=== PATIENT | female | born 1930 | race Caucasian/White ===

== ENCOUNTER 2017-03-27 09:37 | Inpatient (IN) | payer MEDICARE ==
[~2017-03-27] VITALS: Ht 154.9 cm; Wt 61.7 kg
[2017-03-27] MEDS ORDERED: PRESCAP PO (09:55)
[2017-03-27] MEDS ORDERED: HYDR12.55 PO (09:55)
[2017-03-27] MEDS ORDERED: LATA5OPD OD (09:55)
[2017-03-27] MEDS ORDERED: XARE20TA PO (09:55)
[2017-03-27] MEDS ORDERED: TRAM1CAP15 PO (09:55)
[2017-03-27] MEDS ORDERED: SIMV40TA2 PO (09:55)
[2017-03-27] MEDS ORDERED: BETAXOLOL OU (09:55)
[2017-03-27] MEDS ORDERED: LEG1TAB PO (09:55)
[2017-03-27] MEDS ORDERED: AMLO25TA PO (09:55)
[2017-03-27] MEDS ORDERED: ALPH0.156 OD (09:55)
[2017-03-27 10:28] LABS: BASO # 0.1 K/mm3 (0.0-0.2); EOS # 0.1 K/mm3 (0.0-0.50); EOS % 1.7 % (0.0-3.0); LARGE UNSTAINED CELL # 0.1 K/mm3 (0.0-0.4); LARGE UNSTAINED CELL % 1.2 % (0.0-4.0); LYMPH # 1.1 K/mm3 (1.5-4.5); LYMPH % 17.4 % (24.0-44.0); MEAN CORPUSCULAR HEMOGLOBIN 32.5 pg (27.0-33.0); MEAN CORPUSCULAR HGB CONC 33.7 g/dl (32.0-36.5); MEAN CORPUSCULAR VOLUME 96.3 fl (80.0-96.0); MONO # 0.2 K/mm3 (0.0-0.8); MONO % 3.6 % (0.0-5.0); NEUTROPHILS # 4.3 K/mm3 (1.8-7.7); NEUTROPHILS % 75.2 % (36.0-66.0); PLATELET COUNT, AUTOMATED 240 k/mm3 (150-450); RED CELL DISTRIBUTION WIDTH 12.9 % (11.5-14.5); WHITE BLOOD COUNT 5.8 K/mm3 (4.0-10.0)
[2017-03-27 10:33] LABS: INR 1.17
--- NOTE | 2017-03-27 10:42 | REP ---
Chest one-view HISTORY: Infarction Comparison: 05/06/2007 The lungs are clear. The heart is normal in size. The pulmonary vasculature is normal in appearance. Impression: No acute disease. Signed by Ryan Arreguin MD 03/27/2017 10:34 A
[2017-03-27] MEDS ORDERED: hydroCHLOROthiazide 12.5 MG CAPSULE PO ONE (10:45)
--- NOTE | 2017-03-27 10:53 | REP ---
CT HEAD WITHOUT CONTRAST: HISTORY: Infarction. Areas of decreased attenuation are present in the periventricular and subcortical white matter. This represents small vessel ischemic disease. There is no intraparenchymal hemorrhage, acute infarct, mass or midline shift. The ventricular system and cortical sulci as well as subarachnoid space in the posterior fossa are dilated consistent with mild volume loss. There is no extracerebral collection. Mucosal thickening is present in the left ethmoid sinus. The patient is status post bilateral retinal banding. IMPRESSION: 1. Small vessel ischemic disease. 2. Mild volume loss. Signed by Ryan Arreguin MD 03/27/2017 10:54 A
[2017-03-27 11:03] LABS: ANION GAP 6 MEQ/L (8-16); BLOOD UREA NITROGEN 9 MG/DL (7-18); CALCIUM LEVEL 9.6 MG/DL (8.8-10.2); CARBON DIOXIDE LEVEL 28 MEQ/L (21-32); CHLORIDE LEVEL 106 MEQ/L (98-107); CREATININE FOR GFR 0.57 MG/DL (0.55-1.02); GLOMERULAR FILTRATION RATE > 60.0 (>32); GLUCOSE, FASTING 98 MG/DL (83-110); POTASSIUM SERUM 3.6 MEQ/L (3.5-5.1); SODIUM LEVEL 140 MEQ/L (136-145)
--- NOTE | 2017-03-27 13:24 | REP ---
MRI BRAIN WITHOUT CONTRAST: HISTORY: Blurred vision. COMPARISON: CT 03/27/2017 Areas of increased signal intensity on T2-weighted images are present in the periventricular and subcortical white matter and fabienne. This represents small vessel ischemic disease. There is no intraparenchymal hemorrhage, infarct, mass or midline shift. The ventricular system and cortical sulci as well as subarachnoid space in the posterior fossa are dilated consistent with mild volume loss. There is no extracerebral collection. Minimal mucosal thickening is present in the right ethmoid sinus. IMPRESSION: 1. Small vessel ischemic disease. 2. Mild volume loss. Signed by Ryan Arreguin MD 03/27/2017 01:42 P
[2017-03-27] MEDS ORDERED: TRAM50TA2 PO (13:34)
[2017-03-27] MEDS ORDERED: AMLO10TA2 PO (13:34)
[2017-03-27] MEDS ORDERED: SIMV10TA2 PO (13:34)
[2017-03-27] MEDS ORDERED: BETA0.5S9 OU (13:34)
[2017-03-27] MEDS ORDERED: traMADol 50 MG TAB PO PRN (14:15)
[2017-03-27] MEDS ORDERED: ONDANSETRON 4MG/2ML VIAL (J2405) IV PRN (14:15)
--- NOTE | 2017-03-27 15:01 | HPE ---
DATE OF ADMISSION: 03/27/2017 PRIMARY CARE PROVIDER: Yael Padgett but follows with Adria Matt in [place]. THREAT MONITORING ANALYST: Dr. Jeff in [place]. CHIEF COMPLAINT: The patient woke up this morning and was in her usual state of health, went to the bathroom and used the toilet. When she arose from the toilet, she washed her hands, was walking out of the bathroom and she began to feel weak and her vision began to fade. She nearly collapsed. She called her , who was able to help support her. She did not fall down and did maintain on her feet, taking four steps until she was able to lie down on the bed and she began to feel better. At the present time, she continues to feel a little weak, but otherwise is getting back to normal. She never lost consciousness. There was no bladder or bowel incontinence. Shortly thereafter, she did have some dry heaves with nausea, which has not persisted. Visual acuity test was done in the emergency room and was found that the left was 20/50 and right 20/60. Stroke scale was conducted in the emergency room by Dr. Hatch, which she tells me was zero. The patient is concerned as she has not had any episodes like this in the past. She denies fever, chills, diarrhea, sick contacts or recent travel. PAST MEDICAL HISTORY: 1. Paroxysmal atrial fibrillation on Xarelto. 2. Hypertension. 3. Glaucoma, status post right eye shunt. 4. Macular degeneration. 5. Dyslipidemia. 6. Osteoporosis. ALLERGY: ACETAZOLAMIDE, CANDESARTAN, CODEINE, PENICILLIN. PAST SURGICAL HISTORY: 1. "Tubes tied." 2. Hysterectomy. 3. Bladder suspension surgery. 4. Right eye shunt for glaucoma. SOCIAL HISTORY: She drinks one glass of wine with dinner twice a week. She lives with her and nobody else. She denies tobacco or illicit drug use. She has a cat and dog at home. FAMILY HISTORY: Noncontributory. REVIEW OF SYSTEMS: Negative other than history of present illness. HOME MEDICATIONS: - PreserVision AREDs one capsule twice a day - Norvasc 10 mg at night - Betaxolol 0.5% solution both eyes twice a day - Alphagan 0.15% drop both eyes at night - hydrochlorothiazide 12.5 mg daily - Latanoprost OD at night - Xarelto 20 mg at night - simvastatin 10 mg Wednesday through Wednesday and held on Wednesday and Wednesday - tramadol 50 mg every four hours as needed for pain PHYSICAL EXAMINATION: The patient was hypertensive on arrival with a systolic reportedly greater than 200. At the present time, she was 144/69. Temperature 98.1, pulse 62, respiratory rate is 18, oxygen saturation 95% on room air. GENERAL: She is a very pleasant, elderly, female sitting on the stretcher. She does not appear to be in any acute distress. She is accompanied by her . She speaks in complete sentences. HEENT: Her visual field testing is intact on confrontation. Cranial nerves II through XII grossly intact. She has moist mucous membranes. Face is symmetric. CARDIOVASCULAR EXAM: S1, S2. Irregularly irregular. Mildly bradycardic. No additional heart sounds are appreciated. No elevation of central venous pressure. RESPIRATORY EXAM: Clear. ABDOMINAL EXAM: Mild obesity. Bowel sounds present. Abdomen is soft. EXTREMITIES: No clubbing, cyanosis, or edema. LABORATORY DATA: WBC 5.8, hemoglobin 14, hematocrit 41.6, platelet count 240. Chemistry panel: Sodium 140, potassium 3.6, chloride 106, bicarbonate 28, BUN 9, creatinine 0.5. One set of cardiac enzymes is negative. INR is 1.1. No microbiology. IMAGING: The patient did have a MRI of the brain, which revealed small vessel ischemic disease and mild volume loss. She also did have a chest x-ray, which revealed no acute disease. She also had a CT scan of her head, which revealed small vessel ischemic disease and mild volume loss. ASSESSMENT AND PLAN: This is an 87-year-old female with near syncope. 1. Near syncope, unclear etiology. It may have been a vasovagal response. She did have an episode of nausea and vomiting with dry heaves following it. There does not appear to be any palpitations, but she has a history of atrial fibrillation. She will be admitted to the progressive care unit (PCU). I will check an echocardiogram and cardiac enzymes, rule out any arrhythmia or tachybrady syndrome. MRI has already been completed. She did not have a CVA. She has no residual symptoms. We will also check carotid duplex. 2. Paroxysmal atrial fibrillation. Continue with Xarelto. She is not on any rate controlling agent. She does not appear to need it, as she is mildly bradycardic at her baseline. The patient is anticoagulated with Xarelto. 3. Hypertension. She is hypertensive at the time of her arrival in the emergency room. She did not take any of her home medications. She was given 12.5 mg hydrochlorothiazide in the emergency room. I will restart her on amlodipine 10 mg in addition to this. 4. Dyslipidemia. Continue with simvastatin Wednesday through Wednesday. 5. Glaucoma. Continue her home eye drops. Begin Latanoprost and Betaxolol. 6. Chronic osteoarthritic pain. Continue with tramadol as needed. 7. Deep vein thrombosis (DVT) prophylaxis. The patient is on Xarelto. DISPOSITION: The patient is admitted to the progressive care unit (PCU) to Dr. Cardona's service, who will continue to follow the patient at 7:00 a.m. Physical therapy (PT) evaluation has been placed for home safety.
[2017-03-27 15:35] VITALS: BP 132/80
--- NOTE | 2017-03-27 16:24 | ECGEPIP ---
Stationary ECG Study [facility] - ED Test Date: 2017-03-27 Pat Name: GLORIA BARRETO Department: Room: - Gender: F Hris Specialist: pan : 1930 Requested By: Mariah Pineda Order Number: [id number] Reading MD: Mariah Pineda Measurements Intervals [place] Rate: 66 P: -1 KS: 174 QRS: -26 QRSD: 165 T: 113 QT: 529 QTc: 557 Interpretive Statements SINUS RHYTHM LEFT BUNDLE BRANCH BLOCK LAD CW 05/17/16 - RATE DECREASED RHYTHM CHANGE Electronically Signed On 03-27-2017 16:24:29 EDT by Mariah Pineda
--- NOTE | 2017-03-27 17:00 | REPUSA ---
CLINICAL HISTORY: r/o stenosis TECHNIQUE: Realtime sonographic images were obtained in multiple projections. COMMENTS: Realtime examination demonstrates mild echogenic plaque at the bifurcation on the right and proximal right internal carotid artery. Mild echogenic plaque is also documented at the bifurcation on the left and proximal left internal ca rotid artery. Hemodynamic measurement shows no evidence of hemodynamically significant stenoses. The right ICA systolic/diastolic velocities are 57/10 cm/sec. The left ICA systolic/diastolic velocit ies are 61/15 cm/sec. The right IC/CC ratio is 0.88, the left IC/CC ratio is 0.74. External carotid arteries are unremarkable. Vertebral arteries are visualized and have normal antegra de flow. IMPRESSION: 1. Mild echogenic plaque formation at both carotid bifurcations with extension into the ICAs with est imated 0-39% stenosis. 2. No evidence of hemodynamically significant stenosis. Thank you for your kind referral of this patient.
--- NOTE | 2017-03-27 19:05 | ECGEPIP ---
Stationary ECG Study [facility] Test Date: 2017-03-27 Pat Name: Lilliana BARRETO Department: pcu Room: [place] [address] Gender: F Development Geologist: CINDI : 1930 Requested By: NGUYỄN RAHMAN Order Number: [id number] Reading MD: Bunny Phillip Measurements Intervals [place] Rate: 64 P: 8 MT: 179 QRS: -32 QRSD: 162 T: 138 QT: 498 QTc: 516 Interpretive Statements SINUS RHYTHM WITH SINUS ARRHYTHMIA MARKED LEFT AXIS DEVIATION LEFT BUNDLE BRANCH BLOCK No change from earlier this same day Electronically Signed On 03-27-2017 19:04:38 EDT by Bunny Phillip
[2017-03-27 20:00] VITALS: BP 144/72
[2017-03-27] MEDS: LATANOPROST 0.005% OPHTH SOLN 2.5 ML OD SCH (20:06)
[2017-03-27] MEDS: BETAXOLOL 0.5% OU SCH (20:06)
[2017-03-27] MEDS: amLODIPine 10 MG TAB PO SCH (20:06)
[2017-03-27] MEDS: BRIMONIDINE 0.15% OPHTH SOLN 5 ML OD SCH (20:06)
[2017-03-27] MEDS: RIVAROXABAN 20 MG TAB (XARELTO) PO SCH (20:07)
[2017-03-28] VITALS (9 sets, daily range): BP systolic 111–160; BP diastolic 55–92
[2017-03-28] MEDS ORDERED: SLF 3 ML SYR IV PRN (01:45)
[2017-03-28 01:46] LABS: MAGNESIUM LEVEL 2.1 MG/DL (1.8-2.4)
[2017-03-28] MEDS: SLF 3 ML SYR IV SCH ×3 (04:23→20:13)
[2017-03-28 08:38] LABS: MEAN CORPUSCULAR HEMOGLOBIN 32.7 pg (27.0-33.0); MEAN CORPUSCULAR HGB CONC 33.6 g/dl (32.0-36.5); MEAN CORPUSCULAR VOLUME 97.3 fl (80.0-96.0); RED CELL DISTRIBUTION WIDTH 12.6 % (11.5-14.5); WHITE BLOOD COUNT 4.8 K/mm3 (4.0-10.0)
[2017-03-28 08:42] LABS: ANION GAP 8 MEQ/L (8-16); BLOOD UREA NITROGEN 7 MG/DL (7-18); CALCIUM LEVEL 9.1 MG/DL (8.8-10.2); CARBON DIOXIDE LEVEL 26 MEQ/L (21-32); CHLORIDE LEVEL 105 MEQ/L (98-107); CREATININE FOR GFR 0.61 MG/DL (0.55-1.02); GLOMERULAR FILTRATION RATE > 60.0 (>32); GLUCOSE, FASTING 95 MG/DL (83-110); SODIUM LEVEL 139 MEQ/L (136-145)
[2017-03-28] MEDS ORDERED: POTASSIUM CHLORIDE 10 MEQ SR TABLET PO ONE (09:30)
[2017-03-28] MEDS: BETAXOLOL 0.5% OU SCH ×2 (09:31→20:07)
[2017-03-28] MEDS: hydroCHLOROthiazide 12.5 MG CAPSULE PO SCH (09:31)
--- NOTE | 2017-03-28 11:56 | IPN ---
DATE: 03/28/2017 She is currently inpatient. She is seen and examined at the bedside. Chart has been reviewed. She denies any lightheadedness, near syncope, dizziness, chest pain, pressure, or tightness or shortness of breath this morning. Afebrile. No chills or cough. Telemetry is unremarkable. Remains in atrial fibrillation with a ventricular rate of 63 to 68. VITAL SIGNS: Temperature 98.1, pulse 64, respiratory rate 19, blood pressure 146/92, 93% on room air. GENERAL: Awake, alert, oriented times three. Answering questions appropriately. No jugular venous distention (JVD). No thyromegaly. No cervical lymphadenopathy. LUNGS: Clear to auscultation. No wheezing, rales or rhonchi. HEART: S1, S2. Irregularly irregular with no jugular venous distention (JVD). ABDOMEN: Obese, soft, nontender, nondistended. Positive bowel sounds. EXTREMITIES: No cyanosis, clubbing, or pitting edema. Laboratory data, microbiology and imaging studies have been reviewed and notable for a potassium of 3.0. MRI of the brain is negative. Vascular ultrasound of the neck with no critically hemodynamic stenosis. Chest x-ray shows no acute disease. ASSESSMENT AND PLAN: This is an 87-year-old female with a history of paroxysmal atrial fibrillation on Xarelto, hypertension, glaucoma, macular degeneration, dyslipidemia, osteoporosis, right eye shunt for glaucoma, presents to the emergency room with complaints of near syncope while using the toilet, most likely vasovagal; however, in the emergency room she was found to be slightly bradycardic and was admitted for observation. Awaiting echocardiogram. 1. Near syncope, most likely vasovagal. Did have an episode of nausea, vomiting, and dry heaving. History of atrial fibrillation. On telemetry, the patient was found to be bradycardic. Ultrasound of the carotids are unremarkable. MRI of the brain has no CVA. Awaiting echo prior to discharge. 2. Paroxysmal atrial fibrillation. On Xarelto. At times becomes bradycardic. Continue on telemetry. Discharge home in the morning if asymptomatic from the bradycardia. 3. Hypertension, stable. Continue with Norvasc. 4. Dyslipidemia. Continue with simvastatin in the morning. 5. Glaucoma. Continue home eye drops. DISPOSITION: May discharge home in the morning if echo is performed.
[2017-03-28] MEDS: BRIMONIDINE 0.15% OPHTH SOLN 5 ML OD SCH (20:06)
[2017-03-28] MEDS: LATANOPROST 0.005% OPHTH SOLN 2.5 ML OD SCH (20:06)
[2017-03-28] MEDS: RIVAROXABAN 20 MG TAB (XARELTO) PO SCH (20:07)
[2017-03-28] MEDS: amLODIPine 10 MG TAB PO SCH (20:08)
[2017-03-29 04:00] VITALS: BP 135/71
[2017-03-29] MEDS: SLF 3 ML SYR IV SCH (04:54)
[2017-03-29 05:57] LABS: MEAN CORPUSCULAR HEMOGLOBIN 32.4 pg (27.0-33.0); MEAN CORPUSCULAR HGB CONC 33.2 g/dl (32.0-36.5); MEAN CORPUSCULAR VOLUME 97.5 fl (80.0-96.0); RED CELL DISTRIBUTION WIDTH 12.7 % (11.5-14.5); WHITE BLOOD COUNT 5.7 K/mm3 (4.0-10.0)
--- NOTE | 2017-03-29 06:01 | ECHO ---
DATE OF PROCEDURE: 03/28/2017 AGE: 87 GENDER: Female REFERRING PHYSICIAN: Dr. Jerome Jeffries. HEIGHT: 60 inches. WEIGHT: 137 pounds. BODY SURFACE AREA: 1.59 sq m. INPATIENT: PCU Room 3222. INDICATION: Syncopal spell. Abnormal EKG. MEASUREMENTS: 2D MEASUREMENTS: RV - 3.2 cm LV- 4.4 cm Septum - 1.2 cm Posterior wall - 1.2 cm Aortic root - 3.3 cm LA - 3.9 cm LVEF - 45-50% DOPPLER MEASUREMENTS: AV - 1.6 m/s LVOT - 1.2 m/s MV-E: 59 A: 97 EA ratio 0.6 Early mitral deacceleration time 264 ms E-prime - 6.4 A-prime - 13 E/E prime ratio 10 PV - 1.3 m/s Pulmonary artery acceleration time 82 ms RVSP - 42 mmHg IVC - 2.0 cm COMMENTS: Normal sinus rhythm with left bundle branch block. Left atrial size upper limits of normal to mildly dilated. Normal left ventricular size. Right heart chambers were also normal in size. LV wall thickness was borderline increased symmetrically. On real-time imaging from the parasternal and apical projections, the septum moved paradoxically as we would expect with her left bundle branch block. The apex was also hypokinetic. Other wall motion was normal to hyperkinetic. Mild mitral annular thickening but normal leaflet thickness and excursion with no posterior systolic buckling. Three equal size aortic cusps with mildly thickened cusp edges but adequate cusp separation. Normal aortic root size. No apparent intracardiac mass or pericardial effusion. Color flow Doppler study taken from the parasternal and apical projection showed mild mitral and aortic with very mild tricuspid insufficiency. Guided continuous wave Doppler of her aortic valve showed a normal peak systolic velocity against LV outflow tract obstruction. Pulsed and continuous wave Doppler of her LV inflow tract taken from the apical four-chamber projection showed normal diastolic filling velocities against mitral stenosis. There was more prominent late diastolic/atrial dependent filling pattern. Diastolic dysfunction was confirmed by a prolonged early mitral deceleration time and tissue Doppler of her mitral annulus. Her current estimated mean left atrial pressure was upper limits of normal. Pulsed and continuous wave Doppler of her pulmonary trunk showed a normal peak systolic velocity against RV outflow tract obstruction. Her pulmonary artery acceleration time was significantly abbreviated consistent with an elevated pulmonary vascular resistance. Guided continuous wave Doppler of her tricuspid valve allowed our estimation of her right ventricular systolic pressure (moderately increased). Her inferior vena cava was upper limits of normal in size with reduced respiratory collapse in keeping with an elevation in central venous pressure. CONCLUSIONS: Borderline concentric left ventricle hypertrophy with septal wall motion abnormality related to left bundle branch block, at least mild impairment of global resting systolic function. Borderline left atrial enlargement with Doppler evidence of impairment of LV diastolic function yet current estimated mean left atrial pressure upper limits of normal. Normal right heart chamber sizes with Doppler evidence of moderate pulmonary hypertension. IVC size upper limits of normal with reduced respiratory collapse suggestive of a slightly elevated central venous pressure. Mild aortic valvular sclerosis without stenosis and only mild insufficiency. Mild mitral annular calcification with mild insufficiency. The above findings would not explain the patient's recent syncopal spell. MTDD
[2017-03-29 06:06] LABS: ANION GAP 9 MEQ/L (8-16); BLOOD UREA NITROGEN 13 MG/DL (7-18); CALCIUM LEVEL 9.4 MG/DL (8.8-10.2); CARBON DIOXIDE LEVEL 27 MEQ/L (21-32); CHLORIDE LEVEL 105 MEQ/L (98-107); CREATININE FOR GFR 0.61 MG/DL (0.55-1.02); GLOMERULAR FILTRATION RATE > 60.0 (>32); GLUCOSE, FASTING 89 MG/DL (83-110); POTASSIUM SERUM 3.8 MEQ/L (3.5-5.1); SODIUM LEVEL 141 MEQ/L (136-145)
[2017-03-29] MEDS: hydroCHLOROthiazide 12.5 MG CAPSULE PO SCH (07:33)
[2017-03-29] MEDS: BETAXOLOL 0.5% OU SCH (07:34)
[2017-03-29 08:00] VITALS: BP 132/65
[2017-03-29 10:21] LABS: FOLATE 11.2 NG/ML (>5.4)
[2017-03-29] MEDS ORDERED: SIMVASTATIN 10 MG TAB PO SCH (21:00)
--- NOTE | 2017-04-21 10:30 | DSES ---
DATE OF ADMISSION: 03/27/2017 DATE OF DISCHARGE: 03/29/2017 PRIMARY CARE PHYSICIAN: Sirena Alamo, but follows with Adria Matt in [place]. LOCATION WORKER: Dr. Jeff in [place]. PRIMARY DISCHARGE DIAGNOSES: 1. Near syncope with history of chronic atrial fibrillation on rate control medication due to episodes of bradycardia. 2. Paroxysmal atrial fibrillation. 3. Hypertension. 4. Dyslipidemia. 5. Glaucoma. 6. Borderline concentric left ventricle hypertrophy. Chronic left bundle branch block. Mild impairment of systolic function. Left ventricle diastolic dysfunction. Moderate pulmonary hypertension. Ejection fraction of 45-50%. DISCHARGE MEDICATIONS: - amlodipine 10 mg nightly - Leg Cramp Relief one tablet nightly - Xarelto 20 mg nightly - simvastatin 10 mg by mouth five times a week - tramadol 50 mg every 4 hours as needed for pain HOSPITAL COURSE: This is an 87-year-old female with history of paroxysmal atrial fibrillation on chronic Xarelto, hypertension, glaucoma, macular degeneration, dyslipidemia, osteoporosis, right eye shunt for glaucoma, presents to the emergency room (ER) with complaints of near syncope while using the toilet. Patient was found to be bradycardic in the ER, was admitted for observation. Patient has no issues on telemetry aside from episodes of bradycardia, which were asymptomatic. Lowest ventricle rate was 59. Echocardiogram showed ejection fraction (EF) of 45-50% with mild impairment of global systolic function, impaired left ventricular (LV) diastolic function, moderate pulmonary hypertension. Patient had no other issues, maintained her blood pressure, 111 to 130 systolic blood pressure, passed a home safety evaluation, was discharged home. LABS ON DISCHARGE: White count 5.7, hemoglobin 13, hematocrit 39, platelet count 250. Sodium 141, potassium 3.8, chloride 105, bicarbonate 27, BUN 13, creatinine 0.61, glucose of 89. IMAGING STUDIES: CT of the head: Small vessel ischemic disease, mild volume loss, on 03/27/2017. Chest x-ray: No acute disease. MRI of the brain on 03/27/2017: Small vessel ischemic disease, mild volume loss. Carotid duplex ultrasound shows no evidence of hemodynamically significant stenosis. TIME SPENT ON DISCHARGE: 30 minutes. [facility]
== END 2017-03-29 14:36 | disposition home health service (06) | DRG 312 ==
LOC: M ED 09:37 → M ED INP 14:05 → M PCU 15:45
PROVIDERS: ADMIT Internal Medicine; ATTEND General Practice
DX: R55 Syncope and collapse (principal); I10 Essential (primary) hypertension; E78.5 Hyperlipidemia, unspecified; I48.0 Paroxysmal atrial fibrillation; H40.9 Unspecified glaucoma; M81.0 Age-related osteoporosis without current pathological fracture; H35.30 Unspecified macular degeneration; Z88.0 Allergy status to penicillin; Z88.5 Allergy status to narcotic agent; Z88.8 Allergy status to other drugs, medicaments and biological substances; M19.90 Unspecified osteoarthritis, unspecified site

== ENCOUNTER 2017-04-08 07:52 | Inpatient (IN) | payer MEDICARE ==
[~2017-04-08] VITALS: Ht 152.4 cm; Wt 63.9 kg
[~2017-04-08 07:52] MED LIST: ALPH0.156 OD; AMLO10TA2 PO; AMLO25TA PO; BETA0.5S9 OU; BETAXOLOL OU; HYDR12.55 PO; LATA5OPD OD; LEG1TAB PO; PRESCAP PO; SIMV10TA2 PO; SIMV40TA2 PO; TRAM1CAP15 PO; TRAM50TA2 PO; XARE20TA PO
[2017-04-08 08:40] LABS: BASO % 0.7 % (0.0-1.0); EOS # 0.2 K/mm3 (0.0-0.50); EOS % 3.1 % (0.0-3.0); LARGE UNSTAINED CELL # 0.1 K/mm3 (0.0-0.4); LARGE UNSTAINED CELL % 1.5 % (0.0-4.0); LYMPH # 1.3 K/mm3 (1.5-4.5); LYMPH % 26.2 % (24.0-44.0); MEAN CORPUSCULAR HEMOGLOBIN 32.3 pg (27.0-33.0); MEAN CORPUSCULAR HGB CONC 34.1 g/dl (32.0-36.5); MEAN CORPUSCULAR VOLUME 94.9 fl (80.0-96.0); MONO # 0.3 K/mm3 (0.0-0.8); MONO % 5.3 % (0.0-5.0); NEUTROPHILS # 3.1 K/mm3 (1.8-7.7); NEUTROPHILS % 63.2 % (36.0-66.0); PLATELET COUNT, AUTOMATED 275 k/mm3 (150-450); RED CELL DISTRIBUTION WIDTH 12.5 % (11.5-14.5)
[2017-04-08] MEDS: METOPROLOL 5 MG/5 ML VIAL IV SCH ×3 (08:40→08:50)
--- NOTE | 2017-04-08 08:56 | REP ---
Portable chest, single AP view, patient sitting, 08:28 a.m.: Comparison is 03/27/2017. The lung shields are clear. The cardiac size is normal. The martin, mediastinum, and bony thorax are unremarkable. Impression: Negative portable chest. There is no interval change. Signed by Osvaldo Mcdonnell MD 04/08/2017 08:48 A
[2017-04-08 08:58] LABS: INR 1.63
[2017-04-08 09:15] LABS: ALBUMIN 3.6 GM/DL (3.2-5.2); ALBUMIN/GLOBULIN RATIO 1.06 (1.00-1.93); ALKALINE PHOSPHATASE 64 U/L (45-117); ALT/SGPT 20 U/L (12-78); ANION GAP 9 MEQ/L (8-16); AST/SGOT 13 U/L (15-37); BILIRUBIN,DIRECT 0.1 MG/DL (0.0-0.2); BILIRUBIN,TOTAL 0.6 MG/DL (0.2-1.0); BLOOD UREA NITROGEN 8 MG/DL (7-18); CALCIUM LEVEL 9.4 MG/DL (8.8-10.2); CARBON DIOXIDE LEVEL 25 MEQ/L (21-32); CHLORIDE LEVEL 106 MEQ/L (98-107); CREATININE FOR GFR 0.53 MG/DL (0.55-1.02); FREE T4 0.96 NG/DL (0.76-1.46); GLOMERULAR FILTRATION RATE > 60.0 (>32); GLUCOSE, FASTING 108 MG/DL (83-110); POTASSIUM SERUM 3.1 MEQ/L (3.5-5.1); SODIUM LEVEL 140 MEQ/L (136-145)
[2017-04-08] MEDS ORDERED: ATENOLOL 25 MG TAB As Ordered ONE (09:33)
[2017-04-08] MEDS ORDERED: METOPROLOL TART 25 MG TABLET As Ordered ONE (09:38)
[2017-04-08] MEDS ORDERED: ATENOLOL 25 MG TAB PO ONE (09:45)
[2017-04-08] MEDS ORDERED: METOPROLOL TART 25 MG TABLET PO ONE (09:45)
[2017-04-08] MEDS ORDERED: POTASSIUM CHLORIDE 10 MEQ SR TABLET PO ONE (10:00)
[2017-04-08] MEDS ORDERED: ONDANSETRON 4MG/2ML VIAL (J2405) IV PRN (10:00)
[2017-04-08] MEDS ORDERED: ACETAMINOPHEN TAB 650MG DOSE (2X325MG) PO PRN (10:00)
[2017-04-08] MEDS ORDERED: DIGOXIN INJ 0.5 MG/2 ML AMP (J1160) IV ONE (11:00)
[2017-04-08 11:10] VITALS: BP 139/90
[2017-04-08] MEDS ORDERED: traMADol 50 MG TAB PO PRN (12:30)
[2017-04-08 13:45] LABS: POTASSIUM SERUM 4.3 MEQ/L (3.5-5.1)
[2017-04-08 16:00] VITALS: BP 130/66
[2017-04-08] MEDS: METOPROLOL TART 25 MG TABLET PO SCH ×2 (17:18→23:34)
[2017-04-08] MEDS ORDERED: METOPROLOL TART 25 MG TABLET PO SCH (18:00)
--- NOTE | 2017-04-08 19:08 | ECGEPIP ---
Stationary ECG Study [facility] - ED Test Date: 2017-04-08 Pat Name: Lilliana BARRETO Department: ED Room: [place] [address] Gender: F Chief Knowledge Officer: daya : 1930 Requested By: Sirena López Order Number: [id number] Reading MD: Freddy Foster Measurements Intervals [place] Rate: 130 P: MN: 0 QRS: -49 QRSD: 142 T: 134 QT: 358 QTc: 527 Interpretive Statements ATRIAL FIBRILLATION WITH RAPID VENTRICULAR RESPONSE LEFT AXIS DEVIATION LEFT BUNDLE BRANCH BLOCK SIMILAR TO 03/27/17 Electronically Signed On 04-08-2017 19:08:28 EDT by Freddy Foster
[2017-04-08 20:15] VITALS: BP 120/73
[2017-04-08] MEDS ORDERED: BETAXOLOL 0.5% OU SCH (21:00)
[2017-04-08] MEDS ORDERED: BRIMONIDINE 0.15% OPHTH SOLN 5 ML OD SCH (21:00)
[2017-04-08] MEDS ORDERED: LATANOPROST 0.005% OPHTH SOLN 2.5 ML OD SCH (21:00)
[2017-04-08] MEDS: RIVAROXABAN 20 MG TAB (XARELTO) PO SCH (21:05)
[2017-04-08] MEDS: SIMVASTATIN 10 MG TAB PO SCH (21:05)
[2017-04-08 23:38] VITALS: BP 128/75
[2017-04-09 04:29] VITALS: BP 141/68
[2017-04-09] MEDS: METOPROLOL TART 25 MG TABLET PO SCH ×3 (05:31→18:15)
--- NOTE | 2017-04-09 06:44 | HPE ---
DATE OF ADMISSION: 04/08/2017 PRIMARY CARE PROVIDER: Dr. Adria Matt in [place], [place]. CHIEF COMPLAINT: Shortness of breath and dizziness. HISTORY OF PRESENT ILLNESS: This is an 87-year-old female with history of paroxysmal atrial fibrillation on chronic Xarelto, did not tolerate Eliquis, hypertension, glaucoma, macular degeneration, dyslipidemia, osteoporosis, right eye shunt for glaucoma, who presented to the emergency room with complaints of palpitations, shortness of breath this morning when she awoke at 6 a.m. going to the bathroom. The patient had recent admission for vasovagal episode and was found to be slightly bradycardic. No medications were given at that time. Echocardiogram on 03/28/2017, during previous admission showed an ejection fraction of 45-50%, left ventricular diastolic dysfunction, borderline left ventricular hypertrophy (LVH) with septal wall motion abnormality related to left bundle branch block, moderate pulmonary hypertension, mild aortic insufficiency and mild mitral insufficiency. She denied any chest pain, pressure or tightness. Did not pass out this time, and has been on no rate-control medications by her physician as outpatient. She does not have a primary care physician in the area and is visiting from [place] to spend the summer at [facility]. She denies any fever, chills, cough, nausea, vomiting, diarrhea, abdominal pain, diaphoresis, weight gain, weight loss, lower extremity edema, upper or lower extremity weakness, dysuria, urgency , frequency. Electrocardiogram (EKG) shows atrial fibrillation, ventricular rate 132. Hospitalist was called for admission for atrial fibrillation with rapid ventricular rate (RVR) and near syncope. The patient also admits to having eye drops for her glaucoma, unsure whether this is contributing to her complaints of dizziness. PAST MEDICAL HISTORY: 1. Paroxysmal atrial fibrillation on Xarelto. 2. Hypertension. 3. Glaucoma. 4. Status post right eye shunt. 5. Macular degeneration. 6. Dyslipidemia. 7. Osteoporosis. ALLERGIES: ACETAZOLAMIDE, CANDESARTAN, CODEINE, and PENICILLIN. PAST SURGICAL HISTORY: 1. Tubal ligation. 2. Hysterectomy. 3. Bladder suspension surgery. 4. Right eye shunt for glaucoma. SOCIAL HISTORY: Drinks a glass of wine with dinner twice a week. Lives with . Denies tobacco or illicit drug use. Has a cat and dog at home. Visiting from [place]. Lives current at [facility] for the summer. She has a daughter in the area. Retired nurse. Graduated from the [employer] decades ago. FAMILY HISTORY: Noncontributory. REVIEW OF SYSTEMS: 12-point system obtained, all of which are negative aside from positive findings on history of present illness (HPI). HOME MEDICATIONS: - PreserVision Areds one capsule twice a day - betaxolol 0.5% solution twice a day - Alphagan 0.15% drop both eyes nightly - hydrochlorothiazide 12.5 daily - latanoprost right eye at night - Xarelto 20 mg at night - simvastatin 10 mg Wednesday to Wednesday, held on Wednesday, Wednesday - tramadol 50 mg every four hours as needed for pain - Norvasc 10 mg at night PHYSICAL EXAMINATION: VITAL SIGNS: Temperature 98.6, pulse 89, previous pulse was 132 to 89. Irregularly irregular, in atrial fibrillation on telemetry, respiratory rate 18, blood pressure 139/90, 98% on room air. GENERAL: The patient is awake, alert, and oriented to person, place and time. NECK: No jugular venous distention. No thyromegaly. HEENT: Pupils equal, round, and reactive to light and accommodation. Extraocular muscles are intact. No cervical lymphadenopathy or thyromegaly. LUNGS: Clear to auscultation. No wheezes, rales, or rhonchi. HEART: S1, S2. Irregularly irregular. ABDOMEN: Soft, nontender, nondistended. Positive bowel sounds. EXTREMITIES: No pitting edema. LABORATORY DATA: White count 5, hemoglobin 14, hematocrit 42, platelet count 275. Sodium 140, potassium 3.1, chloride 106, bicarbonate 25, BUN 8, creatinine 0.56, glucose of 108, magnesium of 2.5. BNP of 113. IMAGING: Chest x-ray of 04/08, negative portable x-ray. No interval change. Lung shields are clear. ASSESSMENT AND PLAN: This is an 87-year-old female with prior history of paroxysmal atrial fibrillation on chronic Xarelto, not on chronic rate control medications, hypertension, glaucoma status post right eye shunt, macular degeneration, dyslipidemia, osteoporosis, bilateral tubal ligation, hysterectomy, bladder suspension surgery, who presents to the emergency room with complaints of palpitations and dizziness, some shortness of breath. Was found to have atrial fibrillation (A-Fib) with rapid ventricular rate (RVR), status post intravenous (IV) metoprolol and atenolol in the emergency room. Current rate is 89-113. Blood pressure initially was 108/75. The patient was given one dose of intravenous digoxin. The patient will be admitted as an inpatient for two midnights with the following issues: 1. Atrial fibrillation with rapid ventricular response. The patient will be placed on low-dose atenolol 12.5 mg every six hours, increase to 25 every six hours if blood pressure permits. She did receive one dose of digoxin. She is continued on her Xarelto. Hold off on the Norvasc until patient's heart rate is controlled to allow for enough blood pressure to increase the dose of metoprolol. Previous echocardiogram showed no significant valvular disease. Director Of Sports Medicine, Dr. Wilder, has been consulted for rate control. The patient does not have a local physician or chief operator lock tender. May benefit from one due to recurrent episodes of symptoms. 2. Hypertension. Hold off on Norvasc. Titrate metoprolol. 3. Dyslipidemia. Continue simvastatin. 4. Glaucoma. Hold off on eye drops as patient is complaining of dizziness. We will rule out orthostasis. 5. Deep venous thrombosis (DVT) prophylaxis on chronic anticoagulation MTDD
[2017-04-09 07:15] VITALS: BP 160/72
[2017-04-09 11:45] LABS: MEAN CORPUSCULAR HEMOGLOBIN 32.7 pg (27.0-33.0); MEAN CORPUSCULAR HGB CONC 33.6 g/dl (32.0-36.5); MEAN CORPUSCULAR VOLUME 97.3 fl (80.0-96.0); RED CELL DISTRIBUTION WIDTH 12.9 % (11.5-14.5); WHITE BLOOD COUNT 7.1 K/mm3 (4.0-10.0)
[2017-04-09 12:00] VITALS: BP 156/70
[2017-04-09 12:12] LABS: ANION GAP 7 MEQ/L (8-16); BLOOD UREA NITROGEN 11 MG/DL (7-18); CALCIUM LEVEL 9.5 MG/DL (8.8-10.2); CARBON DIOXIDE LEVEL 26 MEQ/L (21-32); CHLORIDE LEVEL 107 MEQ/L (98-107); CREATININE FOR GFR 0.71 MG/DL (0.55-1.02); GLOMERULAR FILTRATION RATE > 60.0 (>32); GLUCOSE, FASTING 129 MG/DL (83-110); SODIUM LEVEL 140 MEQ/L (136-145)
[2017-04-09 16:00] VITALS: BP 165/71
--- NOTE | 2017-04-09 17:02 | ECGEPIP ---
Stationary ECG Study [facility] Test Date: 2017-04-09 Pat Name: Lliliana BARRETO Department: Room: [place] [address] Gender: F Solutions Architect Consultant: WEI : 1930 Requested By: JULISA LAMAR1 Order Number: [id number] Reading MD: Samuel Briones Measurements Intervals [place] Rate: 54 P: 9 DC: 193 QRS: -31 QRSD: 158 T: 119 QT: 524 QTc: 497 Interpretive Statements SINUS BRADYCARDIA Rate much decreased from tracing done 04-08-17 LEFT AXIS DEVIATION LEFT BUNDLE BRANCH BLOCK Electronically Signed On 04-09-2017 17:01:41 EDT by Samuel Briones
[2017-04-09 20:00] VITALS: BP 127/59
[2017-04-09] MEDS: SIMVASTATIN 10 MG TAB PO SCH (21:08)
[2017-04-09] MEDS: RIVAROXABAN 20 MG TAB (XARELTO) PO SCH (21:08)
[2017-04-09] MEDS: amLODIPine 10 MG TAB PO SCH (21:09)
[2017-04-10] VITALS: BP 127/64
[2017-04-10] MEDS: METOPROLOL TART 25 MG TABLET PO SCH ×2 (00:35→05:26)
--- NOTE | 2017-04-10 03:47 | CR ---
DATE OF CONSULTATION: 04/09/2017 REASON FOR CONSULTATION: Atrial fibrillation. HISTORY OF PRESENT ILLNESS: Mrs. Hiro Ramos was admitted on 04/08/2017 with palpitations and was found to be in atrial fibrillation with a rapid ventricular rate. She spontaneously cardioverted to a normal sinus rhythm. She was admitted for further management and monitoring and cardiology consult was called. It seemed that she was recently admitted on 03/29/2017 with an episode of near syncope. When I saw Mrs. Ramos, she was supine in bed in no acute distress at rest. She has not been having any palpitations since the hospital. She denies any associated chest pain. There is no focal manifestation. She denies any bleeding. There is no nausea, vomiting, diarrhea, melena, or hematemesis. She has no cough or hemoptysis. She has a past medical history positive for paroxysmal atrial fibrillation and she has been on Xarelto, hypertension, glaucoma, cataract, macular degeneration, arthritis, hyperlipidemia. There is no history of diabetes mellitus, myocardial infarction, CVA. She does have underlying abnormal EKG manifested by left bundle branch block. Prior echocardiogram revealed a mildly depressed global left ventricular systolic function. PAST SURGICAL HISTORY: Positive for tubal ligation, hysterectomy, bladder suspension surgery, and right eye shunt implantation for glaucoma. CURRENT MEDICATIONS: - amlodipine 10 mg by mouth daily - rivaroxaban/Xarelto 20 mg by mouth nightly - simvastatin 10 mg on Wednesday, Wednesday, Wednesday, and Wednesday - metoprolol tartrate 25 mg by mouth every 6 hours - tramadol 50 mg every 4 hours as needed for pain - Tylenol 650 mg every 4 hours as needed for mild pain or fever - ondansetron 4 mg intravenous (IV) every 6 hours as needed for nausea or vomiting HOME MEDICATIONS: - simvastatin 10 mg by mouth from Wednesday to Wednesday except weekends - tramadol 50 mg every 4 hours as needed for pain - amlodipine 10 mg by mouth daily - Xarelto 20 mg by mouth daily - hydrochlorothiazide 12.5 mg by mouth daily - PreserVision one capsule twice a day - betaxolol 0.5% solution twice a day - Alphagan eye drops 0.15% in both eyes nightly - latanoprost right eye daily FAMILY HISTORY: Noncontributory. SOCIAL HISTORY: Patient lives with her and there is no report of smoking or ethyl alcohol (EtOH) abuse. She stays in the area in the summer, otherwise she lives in the [place] [facility]. PHYSICAL EXAMINATION: Patient is alert and oriented, in no acute distress at rest. Her vital signs when I saw her revealed a blood pressure of 127/59, pulse 60, respirations 18, and her maximum temperature is 98.5 degrees Fahrenheit with an oxygen saturation of 97% on room air. Examination of the head, ears, eyes, nose and throat: Atraumatic. Neck is supple. No jugular venous distention (JVD). The lungs were clear bilaterally on auscultation without any wheezing or crackles. The heart examination revealed normal S1 and S2 without gallops. The point of maximal impulse (PMI) is not displaced. There is no rub. There is a systolic murmur grade 1/6 at the lower left sternal border and at the apex without radiation. Abdomen is soft and nontender. Bowel sounds are active. Extremities reveal trace ankle edema. Neurological examination is negative for focal deficit. LABORATORIES: CBC on 04/09 revealed a WBC of 7.1, hemoglobin 13.8, hematocrit 41.0, and platelets 248,000. BMP revealed a sodium of 140, potassium 4.0, chloride 107, CO2 26, BUN 11, creatinine 0.71, GFR more than 60, fasting glucose 129, and calcium 9.5. Serum troponin has been negative. PT was 19.8 on admission with an INR of 1.63. Serum digoxin was 0.3. Chest x-ray on 04/08/2017 revealed a negative study. No cardiomegaly. Electrocardiogram on admission revealed atrial fibrillation at 130 beats per minute and underlying left bundle branch block. There is left axis deviation, nonspecific ST-T abnormalities. Electrocardiogram done on 04/09/2017 revealed sinus rhythm, bradycardic at 54 beats per minute, left axis deviation, left bundle branch block, and nonspecific ST-T abnormalities. IMPRESSION: 1. Atrial fibrillation, paroxysmal in nature in this 87-year-old woman with a history of hypertension, abnormal EKG manifested by left bundle branch block, glaucoma. Patient was recently admitted with one episode of near syncope. Currently, she is bradycardic on current medications, and I am concerned that she might need a permanent pacemaker implantation. This was discussed with her and she would be monitored for now. Will continue current medications including AV blocking agents. 2. History of cardiomyopathy with a mildly depressed global left ventricular systolic function. She may benefit from an angiotensin-converting enzyme (RICHARD) inhibitor. In that case, will decrease the amlodipine, but it seems that she has allergies to one of the ARBs, and this will need to be clarified. 3. Hypokalemia, resolved. 4. History of abnormal EKG with underlying left bundle branch block. It was a pleasure to participate in the care of Mrs. Ramos for her underlying cardiac condition. I will continue to monitor along with you. Dr. Gary will be seeing her on 04/10/2017. She has an appointment with the office this coming month. Please do not hesitate to call if any question. BHARGAVI
[2017-04-10 04:00] VITALS: BP 129/69
[2017-04-10 07:20] VITALS: BP 143/73
[2017-04-10 07:36] LABS: MEAN CORPUSCULAR HEMOGLOBIN 33.2 pg (27.0-33.0); MEAN CORPUSCULAR HGB CONC 34.3 g/dl (32.0-36.5); MEAN CORPUSCULAR VOLUME 96.7 fl (80.0-96.0); RED CELL DISTRIBUTION WIDTH 12.9 % (11.5-14.5); WHITE BLOOD COUNT 5.1 K/mm3 (4.0-10.0)
[2017-04-10 07:54] LABS: ANION GAP 9 MEQ/L (8-16); BLOOD UREA NITROGEN 8 MG/DL (7-18); CALCIUM LEVEL 9.4 MG/DL (8.8-10.2); CARBON DIOXIDE LEVEL 25 MEQ/L (21-32); CHLORIDE LEVEL 106 MEQ/L (98-107); CREATININE FOR GFR 0.56 MG/DL (0.55-1.02); GLOMERULAR FILTRATION RATE > 60.0 (>32); GLUCOSE, FASTING 94 MG/DL (83-110); POTASSIUM SERUM 3.6 MEQ/L (3.5-5.1); SODIUM LEVEL 140 MEQ/L (136-145)
--- NOTE | 2017-04-10 09:50 | IPN ---
DATE OF SERVICE: 04/09/2017 The patient is seen and examined at the bedside. The chart has been reviewed. This morning the patient was found on telemetry to have episodes of bradycardia with ventricular rate of 54-53, asymptomatic. Blood pressure is well maintained. She did receive metoprolol 25 mg every 6 hours as well as digoxin yesterday with holding parameters. This morning, the patient denies any dizziness, lightheadedness. She does occasionally get shortness of breath when she starts to walk around her bedroom to the bathroom but has not ambulated outside her room. Denies any chest pressure or tightness. No lightheaded or dizziness when she has attempted to get up. Temperature 97.8, pulse 64, respiratory rate 18, blood pressure 160/72, 96% on room air. Generally, the patient is awake, alert, oriented to herself. Answers questions appropriately. She is following commands. No jugular venous distention. No thyromegaly or cervical lymphadenopathy. Pupils round, reactive to light and accommodation. Extraocular muscles are intact. Lungs are diminished but good auscultation. No wheezing, rales or rhonchi. Heart: S1, S2. Regularly irregularly. Abdomen is soft, nontender, nondistended. Positive bowel sounds. Extremities: No pitting edema. LABORATORY DATA: White count 04/08/2017 stable. Lab data is pending. ASSESSMENT/PLAN: This is an 87-year-old female with history of paroxysmal atrial fibrillation on chronic Xarelto; did not tolerate Eliquis, hypertension, glaucoma, macular degeneration, dyslipidemia, osteoporosis, right eye shunt for glaucoma, who presented to the emergency room and complains of shortness of breath when she awoke at 6 a.m. while going to the bathroom. The patient had a recent admission for vasovagal episode and was found to be bradycardiac at that time. On telemetry, no medications were given. Echo on 03/28/2017 showed an ejection fraction (EF) of 45-50%, left ventricular hypertrophy (LVH), septal wall motion abnormality and chronic left bundle branch block. Moderate pulmonary hypertension, mild mitral insufficiency. The patient was admitted for atrial fibrillation with rapid ventricular rate (RVR), when her heart rate was 132 in the emergency room and possibly near syncope with complaints of dizziness and lightheadedness. The patient was on telemetry overnight. Did receive metoprolol 25 mg every 6 hours, IV digoxin for rate control. She then developed bradycardia and currently is on monitor. CURRENT ISSUES: 1. Atrial fibrillation with RVR: Improving with episodes of bradycardia, currently on Lopressor [address] Alejo Wilder has been consulted from cardiology due to determine the need for a pacemaker in light of the patient's episodes of bradycardia and prior history of near syncope initially thought to be vasovagal. Current symptoms are near syncopal episodes with dizziness, lightheadedness with atrial fibrillation and RVR of 120-130 at home, seen on telemetry here in the hospital with improvement with medication. However, with the persistent bradycardia blood pressure appears to be well maintained at this time. Xarelto 20 mg nightly for anticoagulation. 2. Hypercholesterolemia on chronic Zocor. DISPOSITION: Awaiting physical therapy (PT) clearance prior to discharge home and evaluation from cardiology for adjustment of any medications for rate control in light of episodes of bradycardia with current regimen. The patient does live in [place] but will be staying in this area for the rest of the summer. BHARGAVI
--- NOTE | 2017-04-10 09:56 | IPN ---
DATE: 04/10/2017 Mrs. Ramos is feeling relatively well this morning but admits that she still has occasional dizziness. It seems to be brought on most often when she turns, principally turning while standing or sitting, but it can happen even when she turns in bed. Denies any chest pain. Denies any near-syncopal sensations.She had an episode of atrial fibrillation this morning that was asymptomatic and she had no awareness. Talking to the patient, it appears that she has had anticoagulation for years and she was not sure what it is for. Apparently she was told by her physician that she has irregular heart rate a long time ago. Blood pressure 143/73. Heart rate around 60. She is afebrile. Saturation is 96 % on room air. Fluid balance yesterday was documented about 650 positive. Weight has not been documented this morning. She is alert and oriented and appropriate, very nice woman. Her jugular venous pulse (JVP) is not elevated. Lungs are clear. Good air movement. Heart exam reveals regular rhythm with paradoxically splitting second heart sound. I do not appreciate any murmur or gallop. Abdomen is soft, nontender. There is no peripheral edema. Neurologically she is intact. Laboratory [place], she has normal CBC. Normal basic metabolic panel and her INR was 1.6 on admission. ASSESSMENT/PLAN: Mrs. Ramos is an 87-year-old female who has paroxysmal atrial fibrillation. She was admitted with palpitations and was found to be in atrial fibrillation with rapid ventricular rate(RVR). Unfortunately, after conversion to sinus rhythm, she has been quite bradycardic. She tells me that she normally runs bradycardic and a typical heart rate is around 60 beats per minute. She has no history of shilo syncope. At this point I will discontinue her beta blockers and will try to give her low-dose flecainide. If it is well tolerated and effective , we will discharge her on this medication only. On the other hand, if we have some evidence for severe bradycardia or AV block, then she is certainly might be a candidate for pacemaker placement for sick sinus syndrome. The separate issue is that of dizziness. I am not convinced that it is related to atrial fibrillation. Her description seems to be more suggestive of vertigo. She is blaming her eye drops and I suspect that it, at least partially, might be contributing. On the other hand, the description is not typical of orthostatic hypotension and consequently I leave her antihypertensive medications unchanged. I do foresee that she will stay in hospital for at least additional 2 days. JOSED
[2017-04-10] MEDS: FLECAINIDE 50MG TABLET PO SCH ×2 (11:51→20:52)
[2017-04-10 12:00] VITALS: BP 158/72
[2017-04-10 16:00] VITALS: BP 126/63
[2017-04-10 19:57] VITALS: BP 136/68
[2017-04-10] MEDS: RIVAROXABAN 20 MG TAB (XARELTO) PO SCH (20:52)
[2017-04-10] MEDS: amLODIPine 10 MG TAB PO SCH (20:53)
--- NOTE | 2017-04-10 22:21 | IPN ---
DATE: 04/10/2017 SUBJECTIVE: Patient is seen and examined at the bedside. Chart has been reviewed. Per nursing, the patient's heart rate does drop down to 45-48, currently regular rhythm, on metoprolol 25 every six hours. The patient states that last night when she stood up, she felt a little unsteady on her feet, slightly dizzy. No complaints of shortness of breath, palpitations, lightheadedness. OBJECTIVE: VITAL SIGNS: Temperature 97.9, pulse 45, respirations 16, blood pressure 129/69, 96% on room air. GENERAL: The patient is awake, alert, and oriented times three, answering questions appropriately. HEENT: Pupils are round, reactive to light and accommodation. Extraocular muscles are intact. Normocephalic, atraumatic. NECK: No jugular venous distention. No thyromegaly. LUNGS: Clear to auscultation. No wheezes, rales, or rhonchi. HEART: S1, S2. Bradycardic. ABDOMEN: Soft, nontender, nondistended. EXTREMITIES: No pitting edema. LABORATORY DATA: On 04/09, CBC, metabolic panel have been refused. ASSESSMENT AND PLAN: This is an 87-year-old female visiting from [place] and vacations in [place] during the summer with no local physician or implementation director, with a history of paroxysmal atrial fibrillation on chronic Xarelto, did not tolerate Eliquis, hypertension, glaucoma, macular degeneration, dyslipidemia, osteoporosis, right eye shunt for glaucoma, presented to the emergency room (ER) with complaints of palpitations, shortness of breath. Was found to have atrial fibrillation (A-fib) with rapid ventricular rate (RVR), previous admission for syncopal episode thought to be secondary to vasovagal syncope, currently with bradycardic episodes on metoprolol for heart rate control. CURRENT ISSUES: 1. Atrial fibrillation with slow ventricular rate. She has a history of paroxysmal atrial fibrillation, currently in sinus rhythm with a ventricular rate of 45 to 48 on metoprolol 25 mg every six hours[address] Dr. Wilder has been consulted to determine the need for pacemaker as backup, as the patient decreases down to below 60 heart rate into the 40s. Previous echocardiogram showed no valvular disease. May benefit from pacemaker placement. 2. Hypertension. Currently on metoprolol. The patient's blood pressure appears to be well controlled at 120s systolic. 3. History of glaucoma with prior history of syncopal episodes. The patient will need an ophthalmology referral as outpatient to adjust her medications as this could be causing systemic absorption causing hypotension. 4. Dyslipidemia, chronic. 5. Osteoporosis, chronic. 6. Macular degeneration, chronic. DISPOSITION: The patient may need a pacemaker placed Wednesday or Wednesday. Defer to cardiology regarding scheduling of the pacemaker. BHARGAVI
[2017-04-11] VITALS (8 sets, daily range): BP systolic 118–153; BP diastolic 58–85
[2017-04-11] MEDS: FLECAINIDE 50MG TABLET PO SCH ×2 (08:56→21:24)
--- NOTE | 2017-04-11 11:41 | ECGEPIP ---
Stationary ECG Study [facility] Test Date: 2017-04-11 Pat Name: Lilliana BARRETO Department: Room: [place] [address] Gender: F Infertility Nurse: : [id number] Requested By: Odalis Gary Order Number: [id number] Reading MD: Samuel Briones Measurements Intervals [place] Rate: 59 P: 12 KS: 194 QRS: -32 QRSD: 164 T: 120 QT: 542 QTc: 540 Interpretive Statements SINUS BRADYCARDIA WITH SINUS ARRHYTHMIA LEFT AXIS DEVIATION LEFT BUNDLE BRANCH BLOCK Similar to tracing done 04-09-17 Electronically Signed On 04-11-2017 11:41:19 EDT by Samuel Briones
--- NOTE | 2017-04-11 11:58 | IPN ---
DATE: 04/11/2017 Mrs. Ramos is feeling little bit better today than yesterday. After she got her initial dose of flecainide yesterday morning she developed a fairly sudden onset of nausea and vomiting about 5 or 6 hours later. She says it is very unusual for her to have nausea or vomiting. But nevertheless, considering the duration of time before her symptoms onset and taking the medicine, I am reluctant to believe that it is related. She did not have any similar problems after her evening dose. She did not have any significant arrhythmias and stayed in sinus rhythm or sinus bradycardia throughout. This morning blood pressure 134/58, heart rate in 60s. She is afebrile. Saturation 94% room air. Fluid balance about equal. Weight is 62.5 kg. JVP is not up. Lungs are clear. Heart exam regular rhythm, paradoxically splitting second heart sound. No gallop or murmur. Abdomen is soft. No edema. Neurologically she is intact. Laboratory [place], no blood work was ordered for this morning. ECG reveals sinus rhythm with left bundle branch block and QRS complex 163 milliseconds, which is essentially same compared to yesterday. ASSESSMENT/PLAN: Mrs. Ramos is a 87-year-old female who has chronic left bundle branch block and mildly reduced LV systolic function (likely due to LBBB), who presented with atrial fibrillation with AVR. After conversion to sinus rhythm, she was quite bradycardic. At this point, I am giving her just flecainide in an attempt to prevent episodes of atrial fibrillation. Because she had some nausea and vomiting yesterday evening, I am not totally certain whether it is flecainide related, but I believe it likely is not. I am going to keep her in the hospital one more day for monitoring. I encouraged the patient to walk in the corridors of PCU somewhat more to see how she is doing. If all well, I intend to discharge her home tomorrow. BHARGAVI
--- NOTE | 2017-04-11 16:36 | IPN ---
DATE: 04/11/2017 SUBJECTIVE: Patient is seen and examined at the bedside. Chart has been reviewed. This morning, the patient has no new complaints. She had no episodes of dizziness, palpitations, lightheadedness, shortness of breath. Telemetry still shows bradycardic episodes with atrial fibrillation, low ventricular rate on current flecainide. Lowest ventricular rate was 45 to 48. OBJECTIVE: VITAL SIGNS: Temperature 98.2, pulse 67, lowest 45 to 48, respiratory rate 18, blood pressure 134/58, 94% on room air. GENERAL: Awake, alert, and oriented times three, answering questions appropriately. No jugular venous distention (JVD). No thyromegaly . No cervical lymphadenopathy. Moist mucous membranes. LUNGS: Clear to auscultation. No wheezes, rales, or rhonchi. HEART: S1, S2. Irregularly irregular. ABDOMEN: Soft, nontender, nondistended. EXTREMITIES: No pitting edema. LABORATORY DATA: Complete blood count (CBC) and metabolic panel have been reviewed. ASSESSMENT AND PLAN: This is an 87-year-old female with a history of paroxysmal atrial fibrillation on chronic anticoagulation and has not been on rate control medications, presented with near syncopal episode. Due to complaints of palpitations, was found to have atrial fibrillation with rapid ventricular rate. The patient was initially placed on metoprolol and developed bradycardia. Cardiology was consulted, Dr. Wilder and Dr. Gary, who are currently managing the patient's medications. On flecainide 50 mg twice a day currently and continued on Xarelto for anticoagulation. Should the patient be stable, medical treatment would be sufficient; however, she develops persistent bradycardia and may need a pacemaker. Continue to monitor on telemetry for the next 48 hours. CURRENT ISSUES: 1. Atrial fibrillation with rapid ventricular rate with episodes of bradycardia on metoprolol. Currently on flecainide 50 mg twice a day, managed by cardiology, Dr. Gary. No immediate plans for pacemaker, as the patient appears to have responded to flecainide with no repeat episodes of significant bradycardia. 2. Near syncope. Initially attributed to vasovagal syncope during previous admission. Her eye drops have been discontinued due to concerns for orthostatic hypotension; however, she did not appear to be orthostatic. Unsure whether the atrial fibrillation is contributing to her near syncopal episodes with rapid ventricular response. At this time, we will continue to monitor on telemetry and monitor the patient's blood pressure. 3. Hypertension. Managed by her community outreach coordinator. 4. History of glaucoma with prior history of syncopal episodes. Will need outpatient followup with ophthalmology here in town. She does not live in this area during the year and is visiting only for the summer. 5. Dyslipidemia, chronic. 6. Osteoporosis, chronic. 7. Macular degeneration, chronic.
[2017-04-11] MEDS: RIVAROXABAN 20 MG TAB (XARELTO) PO SCH (21:24)
[2017-04-11] MEDS: amLODIPine 10 MG TAB PO SCH (21:24)
[2017-04-12] MEDS ORDERED: SLF 3 ML SYR IV PRN ×2 (03:45→04:00)
[2017-04-12 04:45] VITALS: BP 138/66
[2017-04-12] MEDS ORDERED: SLF 3 ML SYR IV SCH ×2 (06:00)
[2017-04-12] MEDS ORDERED: FLEC50TA PO (07:37)
[2017-04-12 07:48] VITALS: BP 124/74
[2017-04-12] MEDS ORDERED: MECLIZINE 25 MG TABLET PO ONE (08:00)
--- NOTE | 2017-04-12 08:00 | IPN ---
DATE: 04/12/2017 Mrs. Ramos is feeling better. She tells me that her dizziness and nausea both resolved. She seems to be tolerating flecainide fine and there has not been any recurrence of arrhythmias. Vital signs: Blood pressure 130/66, heart rate is in the 50s. She is afebrile. Saturation is 98% on room air. Weight is 64 kg. She is alert and oriented and appropriate. JVP is not elevated. Lungs are clear. Heart: Exam reveals irregular rhythm with paradoxically splitting second heart sound. Abdomen is soft, nontender. No edema. Neurologically she appears intact. She did not have any blood work today. ASSESSMENT/PLAN: Mrs. Ramos is a 87-year-old female who presented with paroxysmal atrial fibrillation and was somewhat difficult to rate control and after conversion to sinus rhythm was quite bradycardic, consequently I am treating her with flecainide only and so far it seems to be well tolerated and effective. From my perspective, she can be discharged home. She is chronically anticoagulated and her blood pressure is reasonably well-controlled. I plan to see her in followup next week.
[2017-04-12] MEDS: FLECAINIDE 50MG TABLET PO SCH (08:22)
[2017-04-12] MEDS ORDERED: MECL-86 PO (10:00)
--- NOTE | 2017-04-12 21:30 | DSES ---
DATE OF ADMISSION: 04/08/2017 DATE OF DISCHARGE: 04/12/2017 PRIMARY CARE PROVIDER: None. FILER METAL PATTERNS DURING THIS ADMISSION: Dr. Alejo Wilder, Dr. Odalis Gary PRIMARY DISCHARGE DIAGNOSES: 1. Paroxysmal atrial fibrillation with rapid ventricular rate. 2. Chronic left bundle branch block with mildly reduced left ventricular systolic function. 3. Episodes of atrial fibrillation with low ventricular rate and bradycardia. 4. History of glaucoma. 5. History of hypertension. 6. History of hypercholesterolemia. DISCHARGE MEDICATIONS: - flecainide 50 mg twice a day - amlodipine 10 mg at bedtime - <<1:12>> 1 tab at bedtime - Xarelto 20 mg at bedtime - simvastatin 10 mg five times a week - Tramadol 50 mg every four hours as needed for pain Patient's opthalmic solutions to be reviewed by her outpatient teacher dramatics due to her recurring syncope. FOLLOW UP ISSUES: 1. Atrial fibrillation with RVR follow up with Dr. Gary within 1-2 weeks of hospital discharge, currently on flecainide, continue with Xarelto. 2. Glaucoma. Primary care physician to refer to opthalmology for review of her eye drops. HOSPITAL COURSE: This is an 87-year-old female with history of paroxysmal atrial fibrillation on chronic Xarelto, has not been on rate control medications, presented with near syncopal episode complains of palpitations with signs of atrial fibrillation with rapid ventricular response. Patient was initially started on metoprolol to follow bradycardia with heart rate of [address] Wilder and Dr. Gary were consulted and I changed the patient to flecainide 50 mg twice a day and continue on Xarelto for anticoagulation. Patient had prior near syncopal episode during the previous admission, was found to have possible vasovagal syncope. Echocardiogram performed at that time showed ejection fraction of 45-50%. Her eye drops were not resumed for glaucoma during this admission due to concerns for systemic activity to be followed through as outpatient with opthalmology referral. Patient has been stable on flecainide 50 mg twice a day. No immediate plans for pacemaker. No repeat episodes of bradycardia, ambulating well. Patient is discharged in stable condition. LAB WORK: White count 5.1, hemoglobin 13, hematocrit 40, platelet count 237, sodium 140, potassium 2.6, chloride 106, bicarbonate 25, BUN 8, creatinine 0.56, glucose 94, troponin 0.06, Digoxin 0.3. IMAGING STUDY: Chest x-ray 04/08 negative portable x-ray no interval change times one. DISCHARGE TIME: 30 minutes.
== END 2017-04-12 11:10 | disposition home or self-care (01) | DRG 310 ==
LOC: M ED 07:52 → M ED INP 09:58 → M PCU 11:08
PROVIDERS: ADMIT General Practice; ATTEND General Practice
DX: I48.0 Paroxysmal atrial fibrillation (principal); H40.9 Unspecified glaucoma; M81.0 Age-related osteoporosis without current pathological fracture; E78.5 Hyperlipidemia, unspecified; H35.30 Unspecified macular degeneration; I44.7 Left bundle-branch block, unspecified; I10 Essential (primary) hypertension; E78.00 Pure hypercholesterolemia, unspecified; Z79.01 Long term (current) use of anticoagulants; Z79.899 Other long term (current) drug therapy; Z90.710 Acquired absence of both cervix and uterus; Z98.51 Tubal ligation status; Z88.0 Allergy status to penicillin; Z88.5 Allergy status to narcotic agent; Z88.8 Allergy status to other drugs, medicaments and biological substances

== ENCOUNTER 2017-05-03 05:33 | Emergency (ER) | payer MEDICARE ==
[~2017-05-03] VITALS: Ht 152.4 cm; Wt 62.7 kg
[~2017-05-03 05:33] MED LIST changes: +FLEC50TA PO; +MECL-86 PO
[2017-05-03 07:02] LABS: BASO % 0.9 % (0.0-1.0); EOS # 0.2 K/mm3 (0.0-0.50); EOS % 4.3 % (0.0-3.0); LARGE UNSTAINED CELL # 0.1 K/mm3 (0.0-0.4); LARGE UNSTAINED CELL % 1.4 % (0.0-4.0); LYMPH # 1.4 K/mm3 (1.5-4.5); LYMPH % 25.6 % (24.0-44.0); MEAN CORPUSCULAR HEMOGLOBIN 32.5 pg (27.0-33.0); MEAN CORPUSCULAR HGB CONC 33.8 g/dl (32.0-36.5); MONO # 0.3 K/mm3 (0.0-0.8); NEUTROPHILS # 3.2 K/mm3 (1.8-7.7); NEUTROPHILS % 62.9 % (36.0-66.0); PLATELET COUNT, AUTOMATED 253 k/mm3 (150-450); RED CELL DISTRIBUTION WIDTH 12.7 % (11.5-14.5); WHITE BLOOD COUNT 5.2 K/mm3 (4.0-10.0)
[2017-05-03 07:14] LABS: ANION GAP 9 MEQ/L (8-16); BLOOD UREA NITROGEN 13 MG/DL (7-18); CALCIUM LEVEL 9.2 MG/DL (8.8-10.2); CARBON DIOXIDE LEVEL 26 MEQ/L (21-32); CHLORIDE LEVEL 107 MEQ/L (98-107); CREATININE FOR GFR 0.69 MG/DL (0.55-1.02); GLOMERULAR FILTRATION RATE > 60.0 (>32); GLUCOSE, FASTING 95 MG/DL (83-110); MAGNESIUM LEVEL 2.4 MG/DL (1.8-2.4); POTASSIUM SERUM 3.4 MEQ/L (3.5-5.1); SODIUM LEVEL 142 MEQ/L (136-145)
--- NOTE | 2017-05-03 08:10 | ECGEPIP ---
Stationary ECG Study [facility] Test Date: 2017-05-03 Pat Name: Lilliana BARRETO Department: Room: - Gender: F Software Quality Assurance Analyst: gil : 1930 Requested By: JENARO Chandler Order Number: [id number] Reading MD: Molly Marrufo Measurements Intervals [place] Rate: 63 P: 8 CT: 208 QRS: -42 QRSD: 178 T: 118 QT: 552 QTc: 568 Interpretive Statements SINUS RHYTHM WITH SINUS ARRHYTHMIA 1ST DEGREE BLOCK MARKED LEFT AXIS DEVIATION LEFT BUNDLE BRANCH BLOCK STABLE C/W 04/11/17 Electronically Signed On 05-03-2017 8:09:49 EDT by Molly Marrufo
[2017-05-03 12:00] VITALS: BP 162/72
--- NOTE | 2017-05-03 19:42 | ECGEPIP ---
Stationary ECG Study [facility] - ED Test Date: 2017-05-03 Pat Name: Lilliana BARRETO Department: Room: - Gender: F Bulk Mail Clerk: sb : 1930 Requested By: JENARO Chandler Order Number: [id number] Reading MD: Freddy Foster Measurements Intervals [place] Rate: 61 P: MT: 0 QRS: -49 QRSD: 162 T: 130 QT: 516 QTc: 522 Interpretive Statements SINUS ARRHYTHMIA WITH FIRST DEGREE AV BLOCK LEFT AXIS DEVIATION LEFT BUNDLE BRANCH BLOCK SIMILAR TO PRIOR ON SAME DATE Electronically Signed On 05-03-2017 19:42:04 EDT by Freddy Foster
== END 2017-05-03 12:32 | disposition home or self-care (01) ==
LOC: M ED 05:33
DX: R00.2 Palpitations (principal); R06.02 Shortness of breath; I48.91 Unspecified atrial fibrillation; Z79.899 Other long term (current) drug therapy; Z79.01 Long term (current) use of anticoagulants; Z88.0 Allergy status to penicillin; Z88.5 Allergy status to narcotic agent; Z88.8 Allergy status to other drugs, medicaments and biological substances

== ENCOUNTER → 2019-02-11 | Outpatient (REF) | payer MEDICARE ==
[~2019-02-11] MED LIST changes: -AMLO10TA2 PO; +AMLO10TA5 PO; +FLEC50HA PO; -FLEC50TA PO; +LATA0.0013 OD; -LATA5OPD OD
== END ==
LOC: M LAB REF 09:54
PROVIDERS: ATTEND Physician Assistant
DX: R30.0 Dysuria (principal)

== ENCOUNTER → 2019-04-18 | Outpatient (CLI) | payer MEDICARE ==
[~2019-04-18] MED LIST changes: +ACET-683 PO; +HYDR12CA PO; +META28.32 PO; +METO200T28 PO; +POTA10TA17 PO; +TOPR50TA PO
--- NOTE | 2019-04-18 14:57 | REP ---
REASON FOR EXAM: Bilateral knee pain times 10 days. No trauma. No priors. RIGHT KNEE, FIVE VIEWS: There is no acute fracture or destructive osseous lesion. The bones are demineralized. There is asymmetric patellofemoral joint space narrowing. There are meniscal calcifications likely secondary to chronic changes. LEFT KNEE: Minimal tricompartmental marginal osteophytosis. Calcifications in the menisci also consistent with degenerative changes. The bones are demineralized. There is no acute fracture. IMPRESSION: Bilateral chronic changes. Electronically Signed by Zen James DO 04/18/2019 04:14 P
[2019-04-20 14:51] LABS: Lyme Disease IgG/IgM Antibodie <0.91 ISR (0.00-0.90); Lyme Disease IgM Ab Quantitati <0.80 index (0.00-0.79)
== END ==
LOC: M WUC 11:30
PROVIDERS: ATTEND Nurse Practitioner Family
DX: M25.761 Osteophyte, right knee (principal)

== ENCOUNTER 2019-04-22 10:17 | Inpatient (IN) | payer MEDICARE ==
[~2019-04-22] VITALS: Ht 152.4 cm; Wt 65.5 kg
[~2019-04-22 10:17] MED LIST changes: -ACET-683 PO; -HYDR12CA PO; -META28.32 PO; -METO200T28 PO; -POTA10TA17 PO; -TOPR50TA PO
[2019-04-22] MEDS ORDERED: METO200T28 PO (10:29)
--- NOTE | 2019-04-22 13:55 | REP ---
HISTORY: Pain and swelling. TECHNIQUE: Multiple ultrasonographic images of the deep venous structures of the left thigh were obtained from the common femoral vein to the popliteal vein along with Doppler interrogation and color flow Doppler images. FINDINGS: There is no abnormal echogenic material seen within any of the visualized deep venous structures that would suggest acute thrombosis. Coaptation is unremarkable throughout. Doppler interrogation shows an expected response to respiratory variability and augmentation. The color flow images show what appears to be a normal vascular pattern throughout. IMPRESSION: There is no ultrasonographic evidence of deep venous thrombosis involving any of the visualized deep venous structures of the left thigh, as described above. Electronically Signed by Zen James DO 04/22/2019 02:58 P
[2019-04-22 14:09] LABS: BASO # 0.1 10^3/uL (0.0-0.2); BASO % 0.9 % (0.0-1.0); EOS # 0.3 10^3/uL (0.0-0.50); EOS % 5.2 % (0.0-3.0); HEMATOCRIT 38.6 % (36.0-47.0); HEMOGLOBIN 13.1 g/dl (12.0-15.5); LYMPH # 1.4 10^3/uL (1.5-4.5); LYMPH % 24.4 % (24.0-44.0); MEAN CORPUSCULAR HEMOGLOBIN 32.5 pg (27.0-33.0); MEAN CORPUSCULAR HGB CONC 33.9 g/dl (32.0-36.5); MEAN CORPUSCULAR VOLUME 95.8 fl (80.0-96.0); MONO # 0.5 10^3/uL (0.0-0.8); MONO % 7.8 % (0.0-5.0); NEUTROPHILS # 3.6 10^3/uL (1.8-7.7); NEUTROPHILS % 61.2 % (36.0-66.0); PLATELET COUNT, AUTOMATED 384 10^3/uL (150-450); RED BLOOD COUNT 4.03 10^6/uL (4.00-5.40); WHITE BLOOD COUNT 5.8 10^3/uL (4.0-10.0)
[2019-04-22 14:19] LABS: INR 1.23; PROTHROMBIN TIME 15.2 SECONDS (11.8-14.0)
[2019-04-22 14:20] LABS: PARTIAL THROMBOPLASTIN TIME 35.4 SECONDS (25.0-38.4)
[2019-04-22 14:31] LABS: ERYTHROCYTE SEDIMENTATION RATE 65 mm/hr (0-42)
[2019-04-22 14:33] LABS: ALBUMIN 3.5 GM/DL (3.2-5.2); ALT/SGPT 16 U/L (12-78); BILIRUBIN,DIRECT 0.2 MG/DL (0.0-0.2); BILIRUBIN,TOTAL 0.5 MG/DL (0.2-1.0); C REACTIVE PROTEIN QUANTITATIV 1.63 MG/DL (0.00-0.30); TOTAL PROTEIN 7.3 GM/DL (6.4-8.2)
--- NOTE | 2019-04-22 16:02 | HPEPDOC ---
[facility] Medical History & Physical Date of Admission Apr 22, 2019 Date of Service: Apr 22, 2019 History and Physical CHIEF COMPLAINT: 2-3 weeks worsening left knee pain with swelling. HISTORY OF PRESENT ILLNESS: 89 yo female for 2-3 week history of worsening left knee pain with swelling. Denies any trauma to her left knee. She was seen in urgent care a few days ago, with x-ray which were unrevealing. [place]. A Lyme screen was done at the urgent care center which the patient reports was negative. She reports difficulty with ambulation secondary to pain in her left knee. She feels her right knee may be starting to become swollen as well. She denies fevers, chills, chest pain, shortness of breath, visible tic bites, abdominal pain, n/v/d/. PAST MEDICAL HISTORY: #afib #HTN #back pain ALLERGIES: Please see below. REVIEW OF SYSTEMS: negative except as per HPI HOME MEDICATIONS: Please see below. PHYSICAL EXAM Vital Signs: See below General: NAD, sitting comfortably in chair, elderly HEENT: NC/AT, EOMI, PERRL Lungs: CTA B/L Heart: +S1S2, RRR Abd: soft, NT, +BS Ext: no edema, left knee swollen, warm to touch, tender to touch anteromedial aspect below knee; ROM limited by pain with left knee Neuro: no gross focal deficits Psych: AAOx3 LABORATORY DATA: See below. MICROBIOLOGY: Please see below. ASSESSMENT: 89 yo female for worsening left knee pain and swelling. #left knee pain/swelling - xrays showed no fracture/patient denied trauma - ortho c/s pending - possible tap; hold off on abx pending ortho eval #afib #HTN #back pain #DVT prophylaxis Vital Signs Vital Signs Date Time Temp Pulse Resp B/P (MAP) Pulse Ox O2 Delivery O2 Flow Rate FiO2 04/22/19 11:18 04/22/19 10:18 98.7 58 15 95 Room Air Laboratory Data Labs 24H Laboratory Tests 2 04/22/19 13:38: Immature Granulocyte % (Auto) 0.5, White Blood Count 5.8, Red Blood Count 4.03, Hemoglobin 13.1, Hematocrit 38.6, Mean Corpuscular Volume 95.8, Mean Corpuscular Hemoglobin 32.5, Mean Corpuscular Hemoglobin Concent 33.9, Red Cell Distribution Width 12.8, Platelet Count 384, Neutrophils (%) (Auto) 61.2, Lymphocytes (%) (Auto) 24.4, Monocytes (%) (Auto) 7.8H, Eosinophils (%) (Auto) 5.2H, Basophils (%) (Auto) 0.9, Neutrophils # (Auto) 3.6, Lymphocytes # (Auto) 1.4L, Monocytes # (Auto) 0.5, Eosinophils # (Auto) 0.3, Basophils # (Auto) 0.1, Nucleated Red Blood Cells % (auto) 0.0, Erythrocyte Sedimentation Rate 65H, Prothrombin Time 15.2H, Prothromb Time International Ratio 1.23, Activated Partial Thromboplast Time 35.4, Lactic Acid Level 1.6, Aspartate Amino Transf (AST/SGOT) 12, Alanine Aminotransferase (ALT/SGPT) 16, Alkaline Phosphatase 82, Total Bilirubin 0.5, Direct Bilirubin 0.2, C-Reactive Protein, Quantitative 1.63H, Total Protein 7.3, Albumin 3.5, Albumin/Globulin Ratio 0.92L 04/22/19 13:56: POC Glucose (Misc Panel) 107H, POC Sodium (Misc Panel) 134L, POC Potassium (Misc Panel) 3.5, POC Chloride (Misc Panel) 100, POC Total CO2 (Misc Panel) 26.0, POC Blood Urea Nitrogen (Misc Panel 6L, POC Ionized Calcium (Misc Panel) 4.8, POC Creatinine (Misc Panel) 0.5L, POC Hematocrit (Misc Panel) 41.0 CBC/BMP Laboratory Tests 04/22/19 13:38 Red Blood Count 4.03, Mean Corpuscular Volume 95.8, Mean Corpuscular Hemoglobin 32.5, Mean Corpuscular Hemoglobin Concent 33.9, Red Cell Distribution Width 12.8, Neutrophils (%) (Auto) 61.2, Lymphocytes (%) (Auto) 24.4, Monocytes (%) (Auto) 7.8 H, Eosinophils (%) (Auto) 5.2 H, Basophils (%) (Auto) 0.9, Neutrophils # (Auto) 3.6, Lymphocytes # (Auto) 1.4 L, Monocytes # (Auto) 0.5, Eosinophils # (Auto) 0.3, Basophils # (Auto) 0.1 Microbiology Microbiology 04/22/19 Blood Culture, Received Pending 04/22/19 Blood Culture, Received Pending Home Medications Scheduled (Leg Cramp Relief) 1 Tab Tab, 1 TAB PO QHS Amlodipine Besylate (Amlodipine Besylate) 10 Mg Tab, 10 MG PO QHS Metoprolol Succinate (Metoprolol Succinate) 200 Mg Tab.er.24h, 50 MG PO DAILY Rivaroxaban (Xarelto) 20 Mg Tab, 20 MG PO QHS Simvastatin (Simvastatin) 10 Mg Tab, 10 MG PO 5XW QHS: MON - FRI Scheduled PRN Tramadol HCl (Tramadol HCl) 50 Mg Tab, 50 MG PO Q4H PRN for PAIN Allergies Coded Allergies: candesartan (Verified Allergy, Severe, PUFFY MOUTH, 04/22/19) codeine (Verified Allergy, Intermediate, VOMITS, 04/22/19) Penicillins (Verified Allergy, Unknown, 04/22/19) acetazolamide (Verified Allergy, Unknown, 04/22/19) A-FIB/CHADSVASC A-FIB History Current/History of A-Fib/PAF?: Yes Current PO Anticoag Therapy: Yes AMERICO BOWLING MD Apr 22, 2019 16:02
[2019-04-22 16:09] LABS: BLOOD UREA NITROGEN 7 MG/DL (7-18); CALCIUM LEVEL 9.3 MG/DL (8.8-10.2); CARBON DIOXIDE LEVEL 26 MEQ/L (21-32); CHLORIDE LEVEL 102 MEQ/L (98-107); CREATININE FOR GFR 0.58 MG/DL (0.55-1.30); GLOMERULAR FILTRATION RATE > 60.0 (>32); GLUCOSE, FASTING 101 MG/DL (70-100); SODIUM LEVEL 136 MEQ/L (136-145)
[2019-04-22] MEDS ORDERED: ACET-683 PO (16:16)
[2019-04-22] MEDS ORDERED: META28.32 PO (16:16)
[2019-04-22] MEDS ORDERED: HYDR12CA PO (16:16)
[2019-04-22] MEDS ORDERED: POTA10TA17 PO (16:16)
[2019-04-22] MEDS ORDERED: TOPR50TA PO (16:16)
[2019-04-22] MEDS ORDERED: PRESCAP PO (16:16)
[2019-04-22] MEDS ORDERED: ACETAMINOPHEN 500 MG TAB PO PRN (16:45)
[2019-04-22] MEDS ORDERED: METOPROLOL SUCC (TopROL XL) 50MG **XL** TAB PO SCH (18:00)
[2019-04-22 18:18] VITALS: BP 161/78
[2019-04-22] MEDS: OCUVITE 1 TAB PO SCH (20:49)
[2019-04-22 20:50] VITALS: BP 126/69
[2019-04-22] MEDS ORDERED: amLODIPine 10 MG TAB PO SCH (21:00)
[2019-04-22 22:00] VITALS: BP 126/69
[2019-04-23 06:00] VITALS: BP 144/70
[2019-04-23 06:24] LABS: BASO # 0.1 10^3/uL (0.0-0.2); BASO % 1.1 % (0.0-1.0); EOS # 0.5 10^3/uL (0.0-0.50); EOS % 9.7 % (0.0-3.0); HEMOGLOBIN 11.7 g/dl (12.0-15.5); LYMPH # 1.1 10^3/uL (1.5-4.5); LYMPH % 21.6 % (24.0-44.0); MEAN CORPUSCULAR HGB CONC 33.4 g/dl (32.0-36.5); MEAN CORPUSCULAR VOLUME 95.6 fl (80.0-96.0); MONO # 0.5 10^3/uL (0.0-0.8); MONO % 10.1 % (0.0-5.0); NEUTROPHILS % 56.9 % (36.0-66.0); PLATELET COUNT, AUTOMATED 345 10^3/uL (150-450); RED BLOOD COUNT 3.66 10^6/uL (4.00-5.40); WHITE BLOOD COUNT 5.3 10^3/uL (4.0-10.0)
[2019-04-23 06:39] LABS: BLOOD UREA NITROGEN 8 MG/DL (7-18); C REACTIVE PROTEIN QUANTITATIV 1.54 MG/DL (0.00-0.30); CALCIUM LEVEL 9.1 MG/DL (8.8-10.2); CARBON DIOXIDE LEVEL 27 MEQ/L (21-32); CHLORIDE LEVEL 105 MEQ/L (98-107); CREATININE FOR GFR 0.58 MG/DL (0.55-1.30); GLOMERULAR FILTRATION RATE > 60.0 (>32); GLUCOSE, FASTING 91 MG/DL (70-100); POTASSIUM SERUM 3.6 MEQ/L (3.5-5.1); SODIUM LEVEL 137 MEQ/L (136-145)
[2019-04-23 07:01] LABS: ERYTHROCYTE SEDIMENTATION RATE 56 mm/hr (0-42)
[2019-04-23] MEDS: OCUVITE 1 TAB PO SCH (08:21)
--- NOTE | 2019-04-23 08:52 | CR ---
DATE OF CONSULTATION: 04/22/2019 CHIEF COMPLAINT: Bilateral knee pain. HISTORY OF PRESENT ILLNESS: This 89-year-old female was seen today at [address] [place] [address] at [facility]. She was admitted by the hospitalist last evening. The patient states that she has had now 4 weeks of bilateral knee pain with one side not being worse than the other. There is no obvious trauma. She feels like perhaps the left side is a little bit worse and more painful. She was seen in an urgent care center a few days ago. [place] concerned about Lyme disease but apparently Lyme screen was negative. She reports difficulty with ambulating secondary to pain in her left knee. She has no other hot, swollen or painful joints. She has not had this in the past. She denies fever, chills, chest pain, shortness of breath, tick bites, abdominal pain, nausea, vomiting, diarrhea or other constitutional symptoms. PAST MEDICAL HISTORY: Includes: Atrial fibrillation. Hypertension. Back pain. ALLERGIES: Are listed in her chart. MEDICATIONS: Include: - Tylenol - amlodipine - hydrochlorothiazide - metoprolol - multivitamins - potassium chloride PAST SURGICAL HISTORY: Includes: Laparoscopy. Vaginal suspension fixation. Uterine suspension. Cul-de-sac operation. Perineum vulva repair. PHYSICAL EXAMINATION: VITAL SIGNS: Temperature 97.9. Blood pressure 144/70. Pulse rate 61. Respiratory rate 18. 95% on room air. She is alert and orientated. She responds appropriately. She is able to sit up in bed. Inspection of both her upper and lower extremities reveal a very trace slight amount of swelling in her left knee. No obvious redness, warmth, ecchymosis or atrophy or deformities. Slight pain to palpation about the left knee but she states she is more anxious than anything. I am unable to locate a specific area of tenderness in either of her knees. Range of motion on the right side was full 0 to 125 degrees, on the left side 0 to 110 degrees. This is a little bit sore in deep flexion. There is only trace effusion. No overlying redness or warmth. No signs of instability of the knee. No pain at the hip with range of motion testing of the hips. Feet are warm and well perfused. Strong pedal pulses. She is able to wiggle her toes, dorsiflex, plantar flex feet. Laboratory examination revealed white blood cell count 5.8 and then today 5.3. ESR 65 down to 56. INR 1.23, PT 15.2 and APTT 35.4. CRP was 1.63 yesterday and 1.54 this morning. Vascular ultrasound for DVT was negative yesterday afternoon. She also had radiographs of both her knees performed approximately 6 days ago. AP, lateral, two obliques and sunrise view were obtained of both knees at. No obvious abnormalities in the right knee. On the left knee she has very mild tricompartmental osteoarthritis. There is signs of calcification of the lateral meniscus consistent with pseudogout/CPPD. ASSESSMENT/PLAN: This 89-year-old female who likely has a mild benign inflammatory effusion to the left knee. I am much less convinced that this is an infectious process given the clinical appearance, blood work and history of this problem. This seems more consistent with pseudogout. I see no role for aspiration or antibiotics in this case. I would prefer to try to treat this with by anti-inflammatories to see if it resolves or improves. If it does not improve with a short course of anti-inflammatories one could consider aspiration to confirm the diagnosis as well as to help with symptom control by taking down some of the very small trace effusion, but in an 89-year-old female who is on Xarelto I would prefer not to do this as it may simply cause a traumatic hemarthrosis, possibly exacerbating her pain even further. These would be my recommendations and I also appreciate the hospitalists co-management of this pleasant woman.
[2019-04-23] MEDS ORDERED: POTASSIUM CHLORIDE 10 MEQ SR TABLET PO SCH (09:00)
[2019-04-23] MEDS ORDERED: hydroCHLOROthiazide 12.5 MG CAPSULE PO SCH (09:00)
--- NOTE | 2019-04-23 10:07 | IPNPDOC ---
Text Note Date of Service The patient was seen on 04/23/19. NOTE Subjective: Patient seen and examined at bedside. She feels much better today. Examining her left knee while conversing her showed no signs of pain today. No other medical complaints. Objective: PHYSICAL EXAM Vital Signs: See below General: NAD, sitting comfortably in chair, elderly HEENT: NC/AT, EOMI, PERRL Lungs: CTA B/L Heart: +S1S2, RRR Abd: soft, NT, +BS Ext: no swelling noted today, left knee perhaps minimally warmer than right, but essentially unremarkable Neuro: no gross focal deficits Psych: AAOx3 LABORATORY DATA: See below. MICROBIOLOGY: Please see below. ASSESSMENT: 89 yo female for worsening left knee pain and swelling. #left knee pain/swelling - appears to have resolved today - xrays showed no fracture/patient denied trauma - ortho c/s appreciated - given no pain or symptoms today will hold off on nsaids for now - PT eval #afib - resume xarelto #HTN #back pain #DVT prophylaxis Dispo: pending PT eval, anticipate d/c home in 24 hours VS,Fishbone, I+O VS, Fishbone, I+O Laboratory Tests 04/22/19 13:38 Red Blood Count 4.03, Mean Corpuscular Volume 95.8, Mean Corpuscular Hemoglobin 32.5, Mean Corpuscular Hemoglobin Concent 33.9, Red Cell Distribution Width 12.8, Neutrophils (%) (Auto) 61.2, Lymphocytes (%) (Auto) 24.4, Monocytes (%) (Auto) 7.8 H, Eosinophils (%) (Auto) 5.2 H, Basophils (%) (Auto) 0.9, Neutrophils # (Auto) 3.6, Lymphocytes # (Auto) 1.4 L, Monocytes # (Auto) 0.5, Eosinophils # (Auto) 0.3, Basophils # (Auto) 0.1 04/23/19 05:48 Red Blood Count 3.66 L, Mean Corpuscular Volume 95.6, Mean Corpuscular Hemoglobin 32.0, Mean Corpuscular Hemoglobin Concent 33.4, Red Cell Distribution Width 12.6, Neutrophils (%) (Auto) 56.9, Lymphocytes (%) (Auto) 21.6 L, Monocytes (%) (Auto) 10.1 H, Eosinophils (%) (Auto) 9.7 H, Basophils (%) (Auto) 1.1 H, Neutrophils # (Auto) 3.0, Lymphocytes # (Auto) 1.1 L, Monocytes # (Auto) 0.5, Eosinophils # (Auto) 0.5, Basophils # (Auto) 0.1, Calcium Level 9.1 Vital Signs Date Time Temp Pulse Resp B/P (MAP) Pulse Ox O2 Delivery O2 Flow Rate FiO2 04/23/19 06:00 97.9 61 18 144/70 (94) 95 04/22/19 10:18 Room Air I&O- Last 24 Hours up to 6 AM 04/23/19 06:00 Intake Total 540 ml Output Total 200 ml Balance 340 ml AMERICO BOWLING MD Apr 23, 2019 10:07
[2019-04-23 14:00] VITALS: BP 125/97
--- NOTE | 2019-04-23 15:01 | DS.PDOC ---
Discharge Summary General Date of Admission Apr 22, 2019 at 15:44 Specialist/Consultants [facility] Discharge Summary PROCEDURES PERFORMED DURING STAY: [None]. DISCHARGE DIAGNOSES: 1. left knee pain/swelling - resolved 2. afib 3. anxiety COMPLICATIONS/CHIEF COMPLAINT: Lt Knee Pain. HOSPITAL COURSE: Patient was admitted for 2-3 week history worsening left knee pain, with swelling and erythema, and difficulty ambulating. Her symptoms resolved while in the hospital. She was seen by orthopedics and PT, with no further inpatient recommendations. She was discharged in stable condition with instructions for further outpatient follow up. DISCHARGE MEDICATIONS: Please see below. ALLERGIES: Please see below. PHYSICAL EXAMINATION ON DISCHARGE: Vital Signs: See below General: NAD, lying comfortably in bed HEENT: NC/AT, EOMI, PERRL Lungs: CTA B/L Heart: +S1S2, RRR Abd: soft, NT, +BS Ext: no edema, no swelling or erythema Neuro: no gross focal deficits Psych: AAOx3 LABORATORY DATA: Please see below. ACTIVITY: [As tolerated]. DIET: 2 gram sodium DISCHARGE PLAN: Discharge home DISCHARGE INSTRUCTIONS: 1. Follow up PCP in 3-5 days. 2. If symptoms return, seek medical attention. DISCHARGE CONDITION: [Stable]. TIME SPENT ON DISCHARGE: 35 minutes. Vital Signs/I&Os Vital Signs Date Time Temp Pulse Resp B/P (MAP) Pulse Ox O2 Delivery O2 Flow Rate FiO2 04/23/19 14:00 97.1 72 18 125/97 (106) 94 04/22/19 10:18 Room Air I&O- Last 24 Hours up to 6 AM 04/23/19 06:00 Intake Total 540 ml Output Total 200 ml Balance 340 ml Laboratory Data Labs 24H Laboratory Tests 2 04/23/19 05:48: Immature Granulocyte % (Auto) 0.6, White Blood Count 5.3, Red Blood Count 3.66L, Hemoglobin 11.7L, Hematocrit 35.0L, Mean Corpuscular Volume 95.6, Mean Corpuscular Hemoglobin 32.0, Mean Corpuscular Hemoglobin Concent 33.4, Red Cell Distribution Width 12.6, Platelet Count 345, Neutrophils (%) (Auto) 56.9, Lymphocytes (%) (Auto) 21.6L, Monocytes (%) (Auto) 10.1H, Eosinophils (%) (Auto) 9.7H, Basophils (%) (Auto) 1.1H, Neutrophils # (Auto) 3.0, Lymphocytes # (Auto) 1.1L, Monocytes # (Auto) 0.5, Eosinophils # (Auto) 0.5, Basophils # (Auto) 0.1, Nucleated Red Blood Cells % (auto) 0.0, Erythrocyte Sedimentation Rate 56H, Anion Gap 5L, Glomerular Filtration Rate > 60.0, Blood Urea Nitrogen 8, Creatinine 0.58, Sodium Level 137, Potassium Level 3.6, Chloride Level 105, Carbon Dioxide Level 27, Calcium Level 9.1, C-Reactive Protein, Quantitative 1.54H CBC/BMP Laboratory Tests 04/23/19 05:48 Red Blood Count 3.66 L, Mean Corpuscular Volume 95.6, Mean Corpuscular Hemoglobin 32.0, Mean Corpuscular Hemoglobin Concent 33.4, Red Cell Distribution Width 12.6, Neutrophils (%) (Auto) 56.9, Lymphocytes (%) (Auto) 21.6 L, Monocytes (%) (Auto) 10.1 H, Eosinophils (%) (Auto) 9.7 H, Basophils (%) (Auto) 1.1 H, Neutrophils # (Auto) 3.0, Lymphocytes # (Auto) 1.1 L, Monocytes # (Auto) 0.5, Eosinophils # (Auto) 0.5, Basophils # (Auto) 0.1, Calcium Level 9.1 Microbiology Microbiology 04/22/19 Blood Culture - Preliminary, Resulted No growth after 24 hours . All specim... 04/22/19 Blood Culture - Preliminary, Resulted No growth after 24 hours . All specim... Discharge Medications Scheduled Amlodipine Besylate (Amlodipine Besylate) 10 Mg Tab, 10 MG PO QHS, (Reported) Hydrochlorothiazide (Hydrochlorothiazide) 12.5 Mg Capsule, 12.5 MG PO DAILY, (Reported) Metoprolol Succinate (Toprol Xl) 50 Mg Tab.er.24h, 50 MG PO QPM, (Reported) Potassium Chloride (Potassium Chloride) 10 Meq Tab.er.prt, 20 MEQ PO DAILY, (Reported) Psyllium Husk (with Sugar) (Metamucil Powder) 575 Gm Powder, 1 TBS PO QHS, (Reported) Rivaroxaban (Xarelto) 20 Mg Tab, 20 MG PO QHS, (Reported) Simvastatin (Simvastatin) 10 Mg Tab, 10 MG PO 5XW, (Reported) QHS: MON - WED Vit A/Vit C/Vit E/Zinc/Copper (Preservision Areds Softgel) 1 Each Capsule, 1 CAP PO BID, (Reported) Scheduled PRN Acetaminophen (Acetaminophen) 500 Mg Tablet, 1,000 MG PO Q6H PRN for PAIN, (Reported) Allergies Coded Allergies: candesartan (Verified Allergy, Severe, PUFFY MOUTH, 04/22/19) codeine (Verified Allergy, Intermediate, VOMITS, 04/22/19) Penicillins (Verified Allergy, Unknown, ITCHING, 04/22/19) acetazolamide (Verified Allergy, Unknown, UNKNOWN REACTION, 04/22/19) AMERICO BOWLING MD Apr 23, 2019 15:01
[2019-04-23] MEDS ORDERED: RIVAROXABAN 20 MG TAB (XARELTO) PO SCH (21:00)
== END 2019-04-23 15:25 | disposition home or self-care (01) | DRG 556 ==
LOC: M ED 10:17 → M ED INP 15:44 → M MS5PR 18:05
PROVIDERS: ADMIT Internal Medicine; ATTEND Internal Medicine
DX: M25.562 Pain in left knee (principal); I48.91 Unspecified atrial fibrillation; F41.9 Anxiety disorder, unspecified; Z79.899 Other long term (current) drug therapy; Z88.5 Allergy status to narcotic agent; Z88.0 Allergy status to penicillin; Z88.8 Allergy status to other drugs, medicaments and biological substances; I10 Essential (primary) hypertension; M54.5 Low back pain